=== PATIENT | female | born 1965 | race Caucasian/White ===

== ENCOUNTER 2020-07-16 12:37 | Outpatient (CLI) | payer OTHER, SELFPAY ==
--- NOTE | 2020-07-16 16:58 | WPDPFTINT ---
PFT Interpretation This is a pulmonary function test with pre and post-bronchodilator spirometry, plethysmography and diffusing capacity. The test was performed and results interpreted in accordance with the 2019 and 2005 ATS/ERS Task Force guidelines respectively using the Gaston/Hilario reference equations. Findings: Spirometry: The contour the inspiratory and expiratory flow tracing are normal. The FVC is 3.07 L, 90% predicted. The FEV1 is 2.29 L, 90% predicted. The FEV1: FVC ratio is 75%. Plethysmography: The total lung capacity is 4.17 L, 78% predicted the functional residual capacity is 1.48, 97% predicted. The residual volume is 1.10 L, 56% predicted. Diffusing capacity: The absolute diffusion capacity is 20.4, 62% predicted. The diffusing capacity corrected for alveolar volume is 5.18, 131% predicted. Impression: There is a mild restrictive ventilatory abnormality with a normal FEV1. The spirometry is normal without evidence of an obstructive abnormality. The absolute diffusing capacity is mildly decreased and normalizes when corrected for alveolar volume. There are no prior studies for comparison
== END 2020-07-16 12:38 | disposition home or self-care (01) ==
LOC: ANHPFT 12:45
PROVIDERS: PCP Family Medicine; Visit Provider Family Medicine
DX: R06.02 Shortness of breath (principal)
CPT/HCPCS: 94375; 94726; 94729

== ENCOUNTER → 2020-09-21 15:49 | Outpatient (CLI) | payer OTHER, SELFPAY ==
--- NOTE | ~2020-09-21 | MM_ITS ---
EXAMINATION: MM screening [facility] BI w gilberto HISTORY: Screening TECHNIQUE: Craniocaudal and mediolateral oblique 3-D tomosynthesis images were obtained and synthetic 2-D images were generated. CAD analysis was submitted and interpreted. COMPARISON: Comparison to multiple prior studies sequentially, with oldest reviewed study dated 11/26. BREAST PARENCHYMAL COMPOSITION: There are scattered areas of fibroglandular density. FINDINGS: There is no evidence of suspicious mass, calcification, or architectural distortion to sugg est malignancy in either breast. There has been no suspicious interval change. IMPRESSION: 1. No mammographic evidence of malignancy. 2. Recommend routine screening mammography in one year. BI-RADS Category 1: Negative Reviewed, dictated and finalized at location A.
== END ==
PROVIDERS: PCP Family Medicine; Visit Provider Obstetrics & Gynecology
DX: Z12.31 Encounter for screening mammogram for malignant neoplasm of breast (principal)
CPT/HCPCS: 77063; 77067

== ENCOUNTER → 2022-11-17 13:48 | Outpatient (CLI) | payer OTHER, SELFPAY ==
--- NOTE | ~2022-11-17 | MM_ITS ---
EXAMINATION: MM screening [facility] w gilberto HISTORY: Screening mammogram TECHNIQUE: Craniocaudal and mediolateral oblique 3-D tomosynthesis images were obtained and synthetic 2-D images were generated. CAD analysis was submitted and interpreted. COMPARISON: September 21, 2020, July 20, 2017, February 11, 2015 bilateral screening mamm[facility] BREAST PARENCHYMAL COMPOSITION: There are scattered areas of fibroglandular density. FINDINGS: There is no evidence of suspicious mass, calcification, or architectural distortion to sugg est malignancy in either breast. There has been no suspicious interval change. IMPRESSION: 1. No mammographic evidence of malignancy. 2. Recommend routine screening mammography in one year. BI-RADS Category 1: Negative Reviewed, dictated and finalized at location A.
== END ==
PROVIDERS: PCP Family Medicine; Visit Provider Obstetrics & Gynecology
DX: Z12.31 Encounter for screening mammogram for malignant neoplasm of breast (principal)
CPT/HCPCS: 77063; 77067

== ENCOUNTER 2023-12-28 10:33 | Outpatient (CLI) | payer OTHER, SELFPAY ==
--- NOTE | ~2023-12-28 | MM_ITS ---
EXAMINATION: MM screening [facility] w gilberto HISTORY: Screening TECHNIQUE: Craniocaudal and mediolateral oblique 3-D tomosynthesis images were obtained and synthetic 2-D images were generated. CAD analysis was submitted and interpreted. COMPARISON: Comparison to multiple prior studies sequentially, with oldest reviewed study dated 02/11. BREAST PARENCHYMAL COMPOSITION: Not dense: There are scattered areas of fibroglandular density. FINDINGS: There is no evidence of suspicious mass, calcification, or architectural distortion to sugg est malignancy in either breast. There has been no suspicious interval change. IMPRESSION: 1. No mammographic evidence of malignancy. 2. Recommend routine screening mammography in one year. BI-RADS Category 1: Negative Reviewed, dictated and finalized at location B.
== END 2023-12-28 10:34 ==
LOC: MICIMG 10:34
PROVIDERS: PCP Family Medicine; Visit Provider Obstetrics & Gynecology
DX: Z12.31 Encounter for screening mammogram for malignant neoplasm of breast (principal)
CPT/HCPCS: 77063; 77067

== ENCOUNTER 2024-04-09 10:20 | Outpatient (CLI) | payer OTHER, SELFPAY ==
--- NOTE | ~2024-04-09 | XR_ITS ---
EXAMINATION: XR lumbar spine min 4V DATE: 04/09/2024 11:03 INDICATION: Low back pain. Left leg pain. TECHNIQUE: 5 views of lumbar spine were obtained. COMPARISON: Lumbar spine MRI 04/09/24 FINDINGS: There is 4 degrees levocurvature of lumbar spine. Vertebral body heights are normal. There is mildly decreased disc height at L3-L4. There are endplate osteophytes at multiple levels. There is multilevel facet joint osteoarthritis, severe in lower lumbar spine. Surgical clips in the right upp er quadrant are likely from cholecystectomy. IMPRESSION: 1. Mild lumbar spondylosis. Reviewed, dictated and finalized at location A. NNA RIGGER IMPRESSION: 1. Mild lumbar spondylosis.
--- NOTE | ~2024-04-09 | MR_ITS ---
MRI of the lumbar spine Clinical History: Back pain, radiculopathy Technique: Axial T2-weighted images, and sagittal T1-weighted, T2-weighted, and and T2 fat-sat images were acquired. Findings: There is no fracture or subluxation of the lumbar spine. Vertebral bodies maintain normal h eight and line. 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 No suspicious b one marrow signal reality seen. At L1-L2, there is no disc bulge or herniation. No spinal canal stenosis or neural foraminal narrowin g. At L2-L3, there is no disc bulge or herniation. There is mild facet joint hypertrophy. No spinal indira l stenosis or neural foraminal narrowing. L3-L4, there is minimal disc bulge with moderate facet arthropathy. No spinal canal stenosis or neura l foraminal narrowing. At L4-L5, there is minimal disc bulge with moderate facet arthropathy. No central canal stenosis or n eural foraminal narrowing. At L5-S1, there is minimal disc bulge with moderate facet arthropathy. No central canal stenosis or n eural foraminal narrowing. Paravertebral soft tissues are unremarkable. Impression: Minimal degenerative spondylosis, as above. Reviewed, dictated and finalized at location . NESS DATABASE ANALYST Impression: Minimal degenerative spondylosis, as above.
== END 2024-04-09 10:21 | disposition home or self-care (01) ==
LOC: GOSHIMG 10:21
PROVIDERS: PCP Family Medicine; Visit Provider Family Medicine
DX: M47.896 Other spondylosis, lumbar region (principal)
CPT/HCPCS: 72110; 72148

== ENCOUNTER 2024-07-10 08:01 | Outpatient (CLI) | payer OTHER, SELFPAY ==
--- NOTE | ~2024-07-10 | NM_ITS ---
EXAMINATION: NM aide stress w perfusion DATE: 07/10/2024 10:13 INDICATION: Chest pain TECHNIQUE: Rest images were obtained following intravenous administration of 11.6 mCi Tc99m tetrofosm in (Myoview). The patient was infused intravenously with Lexiscan (Regadenoson). Then, 34 mCi Tc99m t etrofosmin (Myoview) was administered intravenously, and stress images were obtained in the supine po sition with repeat post stress images also obtained in the prone position. Data was reconstructed int o short axis and horizontal and vertical long axis SPECT images. Gated SPECT images were also obtaine d. COMPARISON: None. FINDINGS: There is diaphragmatic attenuation artifact along the inferior wall on the rest and stress images obtained in the supine position which normalizes on the post stress imaging obtained in the pr one position. No perfusion defects on the prone post stress imaging to suggest ischemia or infarct. There is normal left ventricular chamber size, wall motion and ejection fraction. Left ventricular e jection fraction measures >70%. IMPRESSION: 1. Normal myocardial perfusion during stress. 2. Left ventricular ejection fraction measuring >70%. Reviewed, dictated and finalized at location A. TECH
--- OUTSIDE RECORDS SUMMARY | 2024-07-10 08:04 | XMS_ITS | Data Portability ---
Author Organization [facility] [place], Medical Address [address] [place] [address] Care Team Providers Care Insole And Outsole Preparer Name Role Phone ARMANIELIZABETH ROSS Primary Care Provider CALLI GREENBERG Internal Medicine [phone] Assessment Encounter Date Assessment Date Assessment LastModified by Organization Details LastModified Time 04/20/2021 04/20/2021 Sheba is a 55 year who is doing a phone consult: 1. essential HTN and morbid obesity. She has a pcp. I am working with her as a functional doctor today, we talked about ways she can avoid oils in salad dressings. she likes ranch and kittitian. I have shared with her a vegan recipe and asked her to try soft silken tofu instead of cashews. we also talked about the mental aspect of eating. smoothie for breakfast and a soup or salad for lunch should be eaten with gratitude rather than as a punishment. For the holiday alliance party at work, i suggested that she make a huge salad platter and take it to work to share and eat from it. see you in person in vitaliy [place] Not available 04/20/2021 12:23:34 06/15/2021 06/15/2021 Sheba is a 55 year old lady who is following up:: 1. she wants to reset the clock to help her with her weight. she is slowly but surely loosing weight. she started at 345 pounds and now is at 315 pounds. she is doing this by engaging in one healthy meal per day. now she is ready to do more no gluten no soda no fried foods no fast foods eggs just once a week no red meat, only 3 oz of poultry per 2 meals per day 2-4 servings of fresh veggies per day I will have her add at least3 quarts of sparkling or flavored water to her daily routine. 2. GERD- i will call in pepPlayedd and also have her use dgl or rolaids or both I have explained to her that these are band aids and what she really needs is weight reduction and further down the road a look at gut health ,perhaps- triad and sibo? 3. primary hypercholester olemia- continue diet and walking 3-4 times per week. she is moving to a telehealth membership so our next visit post labs will be a telehealth on august 17 Not available 06/15/2021 13:37:44 08/10/2021 08/10/2021 Sheba is a 55 year old following up via telehealth: she is very apologetic because she has not been able to follow her diet as it tastes so bad. she does not know how to cook and what substitutes to use. the whole office visit was spent discussing with her not to give up, to stay persistent and learn a few basics about simple cooking i went thro some spices. I also asked her to consider some simple cooking classes that she could do online for beginners. i will follow up in 2 hours. she will continue to walk. she has noted that when she looses even 5 pounds of weight eg from recent episode of diarrhea, she had less knee pain. this fills her with hope. Not available 08/12/2021 16:09:10 11/09/2021 11/09/2021 Sheba is a a 55 year old lady who is following up via telehealth she has hardly made any progress. she gives herself a 3/10 for progress and it is only because she has learned a few tricks- giving up all soda, cutting down on meat, adding veggies and fruits I think it is time for her to find a health fitness coach either at [place] or in the community. she wants to do her own search. follow up in 2 months. Not available 11/09/2021 14:11:18 12/14/2021 12/14/2021 Sheba is a 56 year old lady who let me know that today is her last visit with me via telehealth. she let me know that i have given her so many tools, and the only thing that she totally implemented is to get off sodas and fast foods. she has not gained more weight but has not lost weight. She is open to seeing a Health fitness coach but cannot afford to also pay for [place] membership. I have given her a name of a functional medicine certified health fitness coach. Not available 12/14/2021 12:07:25 Plan of Treatment Reminders Order Date Submit Date Provider Last Modified By Organization Details Last Modified Time Details Appointments None recorded. Lab gliadin peptide iga Ab, serum 2021 [facility], [address] [place], [address], 02:20:35 lipid panel, serum 2021 [facility], [address] [place], [address], 12:19:23 T3, free, serum or plasma 2021 [facility], [address] [place], [address], 02:20:35 TSH + free T4, serum 2021 [facility], [address] [place], [address], 02:20:32 homocystein e, serum or plasma 2021 [facility], [address] [place], [address], 02:20:33 HbA1c (hemoglobin A1c), blood 2021 [facility], [address] [place], [address], 02:20:34 uric acid, serum or plasma 2021 [facility], [address] [place], [address], 02:20:35 insulin, serum 2021 [facility], [address] [facility], [place], [address], 02:20:36 CMP, serum or plasma 2021 [facility], [address] [place], [address], 02:20:33 vitamin D, 25-hydroxy, total, serum 2021 [facility], [address] [place], [address], 02:20:34 Referral None recorded. Procedures None recorded. Surgeries None recorded. Imaging None recorded. Medication Orders famotidine 20 mg tablet [address] [facility], [address] [place], [address], 13:33:05 Patient TargetsNo targets recorded. Patient Instructions Encounter Date Encounter Id Patient Instructions Last Modified By Organization Details Last Modified Time 04/20/2021 [id number] Sheba here is a good recipe for a vegan version of kittitian dressing: Made from raw cashews, vegan kittitian dressing recipe tastes creamy and delicious without any added sugars or processed fats. In fact, this dressing can be transformed into Vegan Thousand Island Dressing by adding chopped pickles. In order to accommodate all diets, I also provide a nut-free recipe for people who avoid nuts, so don't run away. WHAT INGREDIENTS ARE NEEDED FOR VEGAN MONGOLIAN DRESSING? So, what's in this fabulous dressing? 1/2 cup raw cashews (soaked overnight but not necessary) 1/2 cup organic ketchup 1/4 cup apple cider vinegar 2 Tablespoons agave (you can sub maple syrup)- i would like you to use 2 tbs LAKANTO ( get on amazon) 1 teaspoon salt 1 teaspoon pepper 1/2 cup water NUT-FREE VEGAN MONGOLIAN DRESSING VARIATION VARIATION 1 AND 2: (IF YOU ARE ALLERGIC TO NUTS) Substitute 1/2 cup Vegenasie for nuts and reduce water to 1/4 cup or Substitute 1/2 cup silken tofu -soft- for nuts and use 1/2 cup water ( try the brand- HERBERTH NU TOFU) And, all you need is a high-quality high-speed wiper blender! I love my Nutri-bullet; not only is it inexpensive, but it also works better than the Vitamix I returned. Kiswahili dressing, not only is great on salads, but it also is a great sandwich spread or vegetable dip. Similarly, vegan thousand island dressing is fabulous on a Vegan Tempeh Jarred, or as a drizzle on steamed vegetables. Not available 04/20/2021 12:17:13 06/15/2021 [id number] 1. labs to be done fasting in mid july. DO not pay more than $70 for vitamin D. if needed go to [facility] and order a vitamin D. the results go to your mail box and you can upload a copy to the [employer] portal. 2. Great plan on your diet. 3. labs ordered to be done after jul 19- okay to use any date till august 17 for follow up on august 17- tele. 4. for heart burn- try pepcid, rolaids or DGL as needed Not available 06/15/2021 12:17:55 Lab requisition given to Sheba to have done at a [facility] location near her. Not available 06/15/2021 12:41:17 08/10/2021 [id number] try SILK ultra original with 5 gm sugar per cup and taste for milk flavor. This one is creamy. try Penzey's spices as recommended. christiano roderick, vietnamese, tuscan sunset should be your basic. try the trial packets- justice and mural of flavor or any that you like. DO NOT GIVE UP. I hope that you have found at least 4 staple recipes that you like with these. also try using some vegennaise Not available 08/10/2021 13:25:01 LVM w Sheba letting her know her instructions have been posted to her portal and to call and ask for Luma if she has any questions. -[facility] Not available 08/10/2021 16:08:27 11/09/2021 [id number] 1. I have shared with you tips of using your instant pot. try mixing a bag of frozen veggies, half cup of soaked legumes, tomato sauce, and any herb seasoning that you like eg tristanian, croatian or vietnamese add water and pressure cook per the jensen's pressure needs garnish with lemon, salt and any hot sauce or even avocados, and shredded 2 color cabbage for a tristanian soup. 2. lets meet back in 2 months. however, it may be useful for you to get a health fitness coach in the interim. [employer] has a health fitness coach or you can use one from the community who has trained in functional nutrition and veganism. eg [employer]. 3.for fatigue, add [facility] Active B one daily, take at least 5 days per week with food, breakfast or lunch. Not available 11/09/2021 14:26:47 went over pt instructions, and will ask VR if there is another B Vit she recommends that Sheba can order elsewhere. -[facility] Not available 11/09/2021 16:12:14 12/14/2021 [id number] Sheba, I am s o sorry to see you leave [facility] and I am even more sorry that I could not help facilitate more lifestyle changes in you. I want you to know that YOU DO HAVE THE POWER to control your body. It just takes discipline and will power. Try to work one one one with a Functional Medicine trained Health fitness coach . I think that you may find that oil extractor holding may work and you could see results in a 3 months! I know of one called [employer] who does online work only; Email her if you are truly interested. Not available 12/14/2021 12:10:53 Reason for Referral None Reported. Results Created Date Observation Date Name Description Value Unit Range Abnormal Flag Note LastModifiedBy Organization Detail LastModifiedTime 03/02/20 22 03/08/2022 TSH+F REE T4 TSH 2.86 mIU/L 0.40-4 .50 normal Not Available [facility] [address] [address], [place], [address], 03/08/2022 02:20:32 03/02/20 22 03/08/2022 TSH+F REE T4 T4, free 1.2 NG/dL 0.8-1. 8 normal Not Available [facility] [address], [address], 03/08/2022 02:20:32 03/02/20 22 03/08/2022 HOMOC YSTEI NE homocysteine 14.2 umol/ L <10.4 high Homoc ystei ne is incre ased by funct ional defic iency of folat e or vitam in B12. Testi ng for methy lmalo amalia acid diffe renti ates betwe en these defic ienci es. Other cause s of incre ased homoc ystei ne inclu de renal failu re, folat e antag onist s such as metho trexa te and pheny toin, and expos ure to nitro us oxide . Yaya romero J, et al., [facility] Inter n Med. 1999; 131(5 ):331 -9. Not Available [address], [address], 03/08/2022 02:20:33 03/02/20 22 03/08/2022 COMPR EHENS CHENCHO METAB OLIC PANEL glucose 107 mg/dL 65-99 high Fasti ng refer ence inter james For someo ne witho ut known diabe grey, a gluco se value betwe en 100 and 125 mg/dL is consi stent with predi abete s and shoul d be confi rmed with a follo w-up test. Not Available [address], [address], 03/08/2022 02:20:33 03/02/20 22 03/08/2022 COMPR EHENS CHENCHO METAB OLIC PANEL urea nitrogen (BUN) 14 mg/dL 7-25 normal Not Available [address] [place], [address], 03/08/2022 02:20:33 03/02/20 22 03/08/2022 COMPR EHENS CHENCHO METAB OLIC PANEL creatinine 0.95 mg/dL 0.50-1 .03 normal Not Available [address], [address], 03/08/2022 02:20:33 03/02/20 22 03/08/2022 COMPR EHENS CHENCHO METAB OLIC PANEL eGFR 69 mL/mi n/1.7 3m2 > or = 60 normal The eGFR is based on the CKD-E PI 2020 equat ion. To calcu late the new eGFR from a previ ous Creat inine or Cysta tin C resul t, go to https ://monica dunham.kevin monsivais/nuria abreu s/ kdoqi /gfr% 5Fcal culat or Not Available [address], [address], 03/08/2022 02:20:33 03/02/20 22 03/08/2022 COMPR EHENS CHENCHO METAB OLIC PANEL BUN/creatini ne ratio NOT APPLIC ABLE (calc ) 6-22 Not Available [address], [address], 03/08/2022 02:20:33 03/02/20 22 03/08/2022 COMPR EHENS CHENCHO METAB OLIC PANEL sodium 137 mmol/ L 135-14 6 normal Not Available [address], [address], 03/08/2022 02:20:33 03/02/20 22 03/08/2022 COMPR EHENS CHENCHO METAB OLIC PANEL potassium 4.1 mmol/ L 3.5-5. 3 normal Not Available [address], [address], 03/08/2022 02:20:33 03/02/20 22 03/08/2022 COMPR EHENS CHENCHO METAB OLIC PANEL chloride 100 mmol/ L 98-110 normal Not Available [address], [address], 03/08/2022 02:20:33 03/02/20 22 03/08/2022 COMPR EHENS CHENCHO METAB OLIC PANEL carbon dioxide 28 mmol/ L 20-32 normal Not Available [address], [address], 03/08/2022 02:20:33 03/02/20 22 03/08/2022 COMPR EHENS CHENCHO METAB OLIC PANEL calcium 8.8 mg/dL 8.6-10 .4 normal Not Available [address], [address], 03/08/2022 02:20:33 03/02/20 22 03/08/2022 COMPR EHENS CHENCHO METAB OLIC PANEL protein, total 7.3 g/dL 6.1-8. 1 normal Not Available [address], [address], 03/08/2022 02:20:33 03/02/20 22 03/08/2022 COMPR EHENS CHENCHO METAB OLIC PANEL albumin 3.8 g/dL 3.6-5. 1 normal Not Available [address], [address], 03/08/2022 02:20:33 03/02/20 22 03/08/2022 COMPR EHENS CHENCHO METAB OLIC PANEL globulin 3.5 g/dL_ (calc ) 1.9-3. 7 normal Not Available [address], [address], 03/08/2022 02:20:33 03/02/20 22 03/08/2022 COMPR EHENS CHENCHO METAB OLIC PANEL albumin/glob ulin ratio 1.1 (calc ) 1.0-2. 5 normal Not Available [address], [address], 03/08/2022 02:20:33 03/02/20 22 03/08/2022 COMPR EHENS CHENCHO METAB OLIC PANEL bilirubin, total 0.7 mg/dL 0.2-1. 2 normal Not Available [address], [address], 03/08/2022 02:20:33 03/02/20 22 03/08/2022 COMPR EHENS CHENCHO METAB OLIC PANEL alkaline phosphatase 90 U/L 37-153 normal Not Available [facility] [employer] [address], [address], 03/08/2022 02:20:33 03/02/20 22 03/08/2022 COMPR EHENS CHENCHO METAB OLIC PANEL AST 15 U/L 10-35 normal Not Available [address], [address], 03/08/2022 02:20:33 03/02/20 22 03/08/2022 COMPR EHENS CHENCHO METAB OLIC PANEL ALT 15 U/L 6-29 normal Not Available [address], [address], 03/08/2022 02:20:33 03/02/20 22 03/08/2022 HEMOG LOBIN A1C hemoglobin A1C 5.6 %_of_ total _HGB <5.7 normal For the purpo se of screjane andres for the prese nce of diabe grey: <5.7% Consi stent with the absen ce of diabe grey 5.7-6 .4% Consi stent with incre ased risk for diabe grey (pred iabet es) > or =6.5% Consi stent with diabe grey This assay resul t is consi stent with a decre ased risk of diabe grey. Curre ntly, no conse nsus exist s regar ding use of hemog lobin A1c for diagn osis of diabe grey in child gt. Accor ding to Ameri can Diabe grey Assoc iatio n (ADA) guide lines , hemog lobin A1c <7.0% repre sents optim al contr ol in non-p regna nt diabe tic patie nts. Diffe rent ri cs may apply to speci fic patie nt popul ation s. Stand ards of Medic al Care in Diabe grey(A DA). Not Available [facility] [place] [address] [place], [address], 03/08/2022 02:20:34 03/02/20 22 03/08/2022 VITAM IN D,25- OH,TO MUNA,I A vitamin D,25-oh,tota l,ia 37 NG/mL 30-100 normal Vitam in D Statu s 25-OH Vitam in D: Defic iency : <20 ng/mL Insuf ficie ncy: 20 - 29 ng/mL Optim al: > or = 30 ng/mL For 25-OH Vitam in D testi ng on patie nts on D2-light pplem entat ion and patie nts for whom quant itati on of D2 and D3 fract ions is requi red, the [facility] e[facility](TM ) 25-OH VIT D, (D2,D 3), LC/MS /MS is recom leena d: order code 54083 (felicia ents >2yrs ). See Note 1 Note 1 For addit ional infor yanick hedrick e refer to http: //deep Boyle stDia gnost ics.c om/fa q/FAQ 199 (This link is being provi ded for infor selena villafana/ educa minerva pinto purpo ses only. ) Not Available [facility] [address] [address] [place], [address], 03/08/2022 02:20:34 03/02/20 22 03/08/2022 URIC ACID uric acid 7.5 mg/dL 2.5-7. 0 high Thera peuti c targe t for gout patie nts: <6.0 mg/dL Not Available [facility], [address], 03/08/2022 02:20:34 03/02/20 22 03/08/2022 T3, FREE T3, free 3.2 pg/mL 2.3-4. 2 normal Not Available [address], [address], 03/08/2022 02:20:35 03/02/20 22 03/08/2022 GLIAD IN (DEAM IDATE D) AB (IGA) gliadin (deamidated) Ab (IgA) 2.7 U/mL normal Value Inter preta tion ----- ----- ----- ---- <15.0 Antib miriam not detec marybeth > or = 15.0 Antib miriam detec marybeth Not Available [facility] [address], [address], 03/08/2022 02:20:35 03/02/20 22 03/08/2022 AWN TEST REFUS AL RAM1 Be advis ed that your patie nt has indic ated on the advan ce writt en notic e their decis ion not to recei ve the follo wing labor atory tests . As a resul t, the tests will not be perfo rmed. Not Available [facility] [address], [address], 03/08/2022 02:20:36 03/02/20 22 03/08/2022 AWN TEST REFUS AL awn test refused [id number] Not Available [facility] [address], [address], 03/08/2022 02:20:36 03/02/20 22 03/08/2022 INSUL IN insulin 28.0 uIU/m L high Refer ence Range < or = 19.6 Risk: Optim al < or = 19.6 Moder ate NA High >19.6 Adult cardi ovasc ular event risk categ ory cut point s (opti mal, moder ate, high) are based on [facility] popul ation data from 05/23 11. This insul in assay shows stron g cross -reac tivit y for some insul in analo gs (lisp ro, aspar t, and glarg ine) and much lower cross -reac tivit y with other s (dete farhan, gluli sine) . Your reque st to have a dupli shorty copy faxed has been mary saenz ed. Queue d to: [phone] Not Available [facility] [address] [place], [address], 03/08/2022 02:20:36 Result Notes None recorded. Problems Name Problem SNOMED Code Status Onset Date Resolution Date Notes Provider Name and Address Organization Details Recorded Time Metabolic syndrome X 371634471 Active 2020 Calli Brigitte null, [place] [facility] 10:47:55 Essential hypertension 25642066 Active 2020 Calli Brig[place] [facility] 10:47:57 Hyperuricemia 46424409 Active 2020 Calli Brig[place] [facility] 10:49:29 Body mass index 40+ - severely obese 725024841 Active 2020 Calli [place] [facility] 10:49:31 Mixed hyperlipidemia 776470551 Active 2020 Calli Brig[place] [facility] 10:49:33 Gastroesophage al reflux disease 191527234 Active 2020 Calli [place] [facility] 11:44:24 Morbid obesity 970017038 Active 2020 Calli Brig[place] [facility] 11:44:26 Atrophic vaginitis 88397634 Active 2020 Calli Brigitte [place] [facility] 07/07/202 1 11:44:28 Working through the pain of grief 718584604 Active 2020 [facility] 14:59:53 Hip pain 24432512 Active 2020 Calli Greenberg [facility] [employer] [facility] 17:51:40 Mixed urinary incontinence 488608788 Active 2020 [facility] 17:51:41 Obstructive sleep apnea syndrome 66833191 Active 2021 [facility] 2 14:11:18 Problem Notes None recorded. Procedures Surgical History Date Name Laterality Status Provider Name and Address Organization Details Recorded Time section completed Viktoria Duran [facility] 06/07/2020 16:29:50 Other completed Viktoria Barrosmally [facility] 06/07/2020 16:30:23 Imaging Results None recorded. Procedure Notes None recorded. Medical Equipment None Reported. Allergies No known drug allergies Medications Name Sig Start Date Stop Date Status Note LastModified by Organization Details LastModified Time fluconazo le 150 mg tablet TAKE ONE TABLET BY MOUTH EVERY 3 DAYS 12/08 completed Not Available Not Available Not Available metoprolo l succinate ER 200 mg tablet,ex tended release 24 hr Take 0.5 mg every day by oral route for 90 days. 09/22 completed Not Available Not Available Not Available metoprolo l succinate ER 100 mg tablet,ex tended release 24 hr one tablet daily active Not Available Not Available No t Available chlorthal idone 25 mg tablet Take 1 tablet every day by oral route for 90 days. active Not Available Not Available No t Available famotidin e 20 mg tablet TAKE 1 TABLET BY MOUTH TWICE DAILY active Not Available Not Available No t Available triamcino lone acetonide 0.1 % topical ointment APPLY TO THE AFFECTED AREA(S) THREE TIMES DAILYAS NEEDED active Only PRN, about once or twice monthly Not Available Not Available Not Available hydrocort isone 2.5 % topical cream APPLY TO CHEEKS/E YEBROWS/ UNDER BREASTS/ ABDOMEN EVERY DAY AT BEDTIME NEEDED. active Not Available Not Available No t Available allopurin ol 300 mg tablet has not started- 08/04/19 21 09/22 completed Not Available Not Available Not Available mupirocin 2 % topical ointment as needed active Not Available Not Available No t Available estradiol 0.01% (0.1 mg/gram) vaginal cream INSERT 1 APPLICAT ORFUL VAGINALL Y IN THE MORNING 01/12 completed Not Available Not Available Not Available ketoconaz ole 2 % topical cream APPLY TO CHEEKS/E YEBROWS/ UNDER BREASTS/ ABDOMEN EVERY DAY IN THE MORNING NEEDED. 11/09 completed Not Available Not Available Not Available irbesarta n 300 mg tablet one tablet daily active Not Available Not Available No t Available solifenac in 5 mg tablet Take 1 tablet every day by oral route for 90 days. active Not Available Not Available No t Available metoprolo l suc 100 mg-hydroc hlorothia zide 12.5 mg tablet,ex t.rel 24 hr Take 1 tablet every day by oral route. 06/15 completed Not Available Not Available Not Available Vitals Date Recorded Body height Body mass index (BMI) Body weight Provider Name and Address Organization Details Last Updated DateTime 04/20/2021 165.74 cm 55.3 kg/m2 832821.44 g Anna Alberto [facility] 04/20/2021 11:35:18 Date Recorded Body height Body mass index (BMI) Body weight Body temperature Heart rate Oxygen saturation Oxygen saturation in Arterial blood by Pulse oximetry Systolic blood pressure Diastolic blood pressure Provider Name and Address Organization Details Last Updated DateTime 2 163.83 cm 55.9 kg/m2 952638. 07 g 97.8 [degF] 76 /min 95 % 95 % 130 mm[Hg] 80 mm[Hg] Dianna Koroma [facility] 2 11:17:56 Date Recorded Body height Body mass index (BMI) Body weight Heart rate Systolic blood pressure Diastolic blood pressure Provider Name and Address Organization Details Last Updated DateTime 2 163.83 cm 55.1 kg/m2 550521. 11 g 80 /min 122 mm[Hg] 75 mm[Hg] Anna Alberto [facility] 2 12:04:04 Date Recorded Body height Body mass index (BMI) Body weight Provider Name and Address Organization Details Last Updated DateTime 11/09/2021 163.83 cm 55.4 kg/m2 715051.3 g [facility]na [facility] 11/09/2021 12:46:44 Date Recorded Body height Body mass index (BMI) Body weight Provider Name and Address Organization Details Last Updated DateTime 12/14/2021 163.83 cm 55.4 kg/m2 227460.3 g Dianna [facility] 12/14/2021 11:24:11 Social History None recorded. Functional Status None recorded. Mental Status None recorded. Family History Relationship Description Onset Age of this Age Resolved Age Notes LastModified by Organization Details LastModified Time Mother Myocardial infarction [email or web address] Not available 06/07 16:19:45 Father Dementia 84 Not available 06/07/2020 16:20:00 Medical History Condition Response Coronary Artery Disease N Other N Gout N High Blood Pressure Y Kidney Stones N Hyperthyroidism N MRSA N INJURIES N Chronic Sinusitis N Gerd/Reflux N Braces N Congenital Heart Disease N Depression N Pneumonia N BLOOD/INFLAMMATORY/IMMUNE N Complex Regional Pain Syndrome N Headache/Migraine N Sinusitis N RESPIRATORY N Gall stones N Bulimia N Obesity Y Arthritis N Polycystic Ovarian Syndrome N Infertility N Congenital Disorder N Stroke N Crohn's Disease N Neck Injury N HIV/AIDS N CARDIOVASCULAR N Skin Cancer N Mood disorder N Fibromyalgia N Irritable Bowel Syndrome N Kidney Disease N Concussion/Traumatic Brain Injury N Inflammatory bowel disease N Chronic Fatigue Syndrome N Anxiety N Hospitalizations N Irregular HR/Arrhythmia N Heart Attack/KS N Herpes N GASTROINTESTINAL N Acne N PTSD N Celiac Disease N Constipation N Bleeding Disorder N Hepatitis/Liver Disease N Broken bone N Cerebral Palsy N Tuberculosis N METABOLIC/ENDOCRINE N Asthma N Dental Visits 2x/year N Silver/Mercury Amalgum fillings N Chronic Ear Infections N Bipolar disorder N Oral Steroids as Adult N MENTAL HEALTH N URINARY/REPRODUCTIVE N Anorexia N Hypothyroidism N Developmental delay N Pacemaker N Panic attacks N DERMATOLOGIC N Gastic or peptic ulcers N Food intolerance N Yeast infections N Prostate problem N Mononucleosis N Chronic pain N Hypoglycemia N Severe infections N ORAL HEALTH N Metabolic syndrome N Back Injury N High Cholesterol N Antibiotic Use as Teen N CANCER N Type 1 Diabetes N Autism/Autism Spectrum Disorder (ASD) N Autoimmune Disease N Allergies/Hayfever N Recurrent Fractures N Head Injury N Osteoarthritis N NEUROLOGIC N Rheumatic fever N Parkinson's Disease N Oral Steroids as Teen N ADD/ADHD N Anemia N Multiple Sclerosis N Back Pain N Type 2 Diabetes N Bronchitis/Emphysema N Dentures N Retainer N Cardiomyopathy N Seizures/Epilepsy N Heart Murmur N Congestive Heart Failure (CHF) N Valvular Heart Disease N Cancer and treatments N Eczema N MUSCULOSKELETAL/PAIN N Dementia N Urinary tract infections N Ulcerative colitis N Lupus N Learning Disorder/Difficulty N Connective Tissue Disorder N Blood Clotting Disorder N Antibiotic Use as Adult N Psoriasis N Sleep Apnea N Oral Steroids as Infant/Child N Antibiotic Use in Infancy/Childhood N Osteoporosis N Gynecological HistoryNo gynecological history recorded. Obstetrics History GPAL:G 0 P 0 0 0 0 Immunizations Vaccine Type Date Status Note Provider Nam e and Address Organization Details Recorded Time COVID-19, mRNA, LNP-S, PF, 30 mcg/0.3 mL dose 04/06/2021 completed Dianna Koroma [employer] [facility] 06/15/2021 11:20:49 COVID-19, mRNA, LNP-S, PF, 30 mcg/0.3 mL dose 09/04/2020 completed Dianna Koroma [employer] [facility] 06/15/2021 11:20:56 COVID-19, mRNA, LNP-S, PF, 30 mcg/0.3 mL dose 08/04/2020 completed Dianna Koroma null, [facility] 06/15/2021 11:21:04 COVID-19, mRNA, LNP-S, PF, 30 mcg/0.3 mL dose 11/17/2021 completed Dianna Koroma [employer] [facility] 12/14/2021 11:26:41 Past Encounters Encounter ID Performer Location Encounter Start Date Encounter Closed Date Diagnosis/Indication Diagnosis SNOMED-CT Code Diagnosis ICD10 Code Diagnosis Note [id number] [address] 4 04/07/2020 08:29:24 04/08/2020 10:57:[id number] [address] 4 06/07/2020 16:00:01 06/08/2020 12:15:14 Morbid obesity 422120835 E66.01 Essential hypertension 19478973 I10 Obstructiv e sleep apnea syndrome 89327525 G47.33 Gastroesop hageal reflux disease 383891107 K21.9 Irritable bowel syndrome 70386211 K58.[id number] [address] 4 08/03/2020 11:31:29 08/03/2020 16:51:42 Metabolic syndrome X 356251863 E88.81 Essential hypertension 07268081 I10 on metoprolol 50, irbesartan 300 and chlorthali done25 Mixed hyperlipidemia 267 156871 E78.2 Body mass index 40+ - severely obese 569777742 Z68.43 Hyperuricemia 38336305 E 79.0 uric acid 7.4 hv, on chlorthali done 25 mg [id number] [place] [id number] 4 09/22/2020 10:18:19 09/22/2020 15:28:35 Essential hypertension 78140205 I10 on metoprolol 50, irbesartan 300 and chlorthali done25 Body mass index 40+ - severely obese 121276767 Z68.43 Metabolic syndrome X 237 129978 E88.81 Mixed hyperlipidemia 267 931323 E78.[id number] [address] 4 10/27/2020 10:16:00 10/27/2020 16:32:22 Essential hypertension 23456636 I10 on metoprolol 50, irbesartan 300 and chlorthali done25 Metabolic syndrome X 237 215999 E88.81 Stress and adjustment reaction 167361071 F43.9 Gastroesop hageal reflux disease 326916709 K21.9 [id number] [place] [id number] 4 12/08/2020 10:21:19 12/08/2020 15:03:07 Atrophic vaginitis 48357288 N95.2 Morbid obesity 597749484 E66.01 Essential hypertension 52298244 I10 on metoprolol 50, irbesartan 300 and chlorthali done25 Gastroesop hageal reflux disease 431980542 K21.[id number] [address] 4 01/12/2021 10:27:00 01/12/2021 16:50:13 Morbid obesity 832072784 E66.01 Working th rough the pain of grief 105382305 F43.[id number] [address] 4 02/16/2021 10:19:45 02/16/2021 16:18:47 Mixed urinary incontinence 144033693 N39.46 Hip pain 01820128 M25.55 9 [id number] [place] [id number] 4 03/22/2021 11:06:20 03/23/2021 10:59:20 Morbid obesity 993495619 E66.01 Mixed hyperlipidemia 267 777989 E78.2 Essential hypertension 81238426 I10 on metoprolol 50, irbesartan 300 and chlorthali done25 [id number] [address] [address] 4 04/20/2021 11:33:55 04/20/2021 15:47:14 Essential hypertension 04481918 I10 on metoprolol 50, irbesartan 300 and chlorthali done25 Mixed hyperlipidemia 267 699976 E78.2 Morbid obesity 186623936 E66.[id number] [address] 4 06/15/2021 11:06:08 06/15/2021 13:37:55 Morbid obesity 977188230 E66.01 Primary hypercholesterolemia 833170103 E78.00 Adult heal th examination 954173144 Z00.00 Gluten sensitivity 31467 1003 K90.41 Gastroesop hageal reflux disease 020394207 K21.[id number] [address] 4 08/10/2021 12:03:26 08/11/2021 10:30:39 Morbid obesity 066259539 E66.[id number] [address] 4 11/09/2021 12:43:25 11/09/2021 17:18:09 Morbid obesity 741525626 E66.01 bmi 55 Essential hypertension 09393137 I10 on metoprolol 50, irbesartan 300 and chlorthali done25 Obstructiv e sleep apnea syndrome 60063062 G47.33 uses cpap- 1.5 years. [id number] [facility] [address] [place] [address] 12/14/2021 11:19:06 12/14/2021 17:19:13 Morbid obesity 999911187 E66.01 bmi 55 Essential hypertension 23425639 I10 on metoprolol 50, irbesartan 300 and chlorthali done25 Health Concerns Section Related Observation LastModified by Organization Detai ls LastModified Time None Recorded Concern Status LastModified by Organization Details LastModified Time None Recorded Advance Directives Directive None Recorded Payers Encounter Date Sequence Insurance Name Policy Number Policy Foster Covered Member ID Foster Member ID Guarantor Name 04/20/2021 1 [employer] [id number] Sheba Ash [id number] OI Sheba Ash 06/15/2021 1 [employer] [id number] Sheba Amezcuags [id number] OI Sheba Ash 08/10/2021 1 [employer] [id number] Sheba Amezcuags [id number] OI Sheba Ash 11/09/2021 1 [employer] [id number] Sheba Amezcuags [id number] OI Sheba Ash 12/14/2021 1 [employer] [id number] Sheba Amezcuags [id number] OI Sheba Ash Notes Date Note Type Note Provider Name and Address Organization Details Recorded Time 04/20/2021 text/html Sheba is a 55 year old lady who is doing a telehealth: 1. Headache and fevers today. she was in the office this week on sunday. she did her rapid test this am and was negative. ( home test)2. smoothie recipe changed to half dose of the greens to make it taste better. she is also eating large salads r soups for lunch and walks daily with her daughter.she likes kittitian and ranch dressings but using vinaigaretters.no change in weightshe does have some sob.she feels better on days she walks than not.however, walking too far, makes her back pain worse. Calli nixon [employer] 04/20/2021 12:23:55 06/15/2021 text/html Sheba is a 55 year old 1. morbid obesity- she has been walking at least 3 dyas per week.during the holidays, she cheated.from Jun , she is getting off all SODA, FAST FOODS, NO FRIED FOODS, EGGS 1 / week, 3 oz poultry, Veggies 2-4 servings and no gluten 2. hip discomfort is pain 3. GERD with chest pain Calli nixon [employer] 06/15/2021 13:37:53 08/10/2021 text/html Sheba is a 55 year old lady who is following up: 1. back and knee pain 2. food poisoning over the weekend from a bbq place's baked beans. she lost weight ~ 5 pounds and her knees felt better. it was amazing Calli nixon [employer] 08/12/2021 16:09:18 11/09/2021 text/html Sheba is a 55 year old lady who is here for the followin. no weight lossshe gives herself a 3/10 for learning a lot moreshe does not always practice what she has learnedshe has an instant pot. 2. high BP. on metoprolol 100 mg er, irbesartan 300 mg and chlorthalidone.she has not checked her bp. no sob, no chest pains. 3. lifestylesleep- fair. uses cpap. will wake up around 3 and not get back to sleep till 5 on some days.diet- no sodas, fiber is low. will tend to eat fried foodsexercise- has not been regular with walkingcommunity around her love foods that is meat and potatoes and fried. she and her will no longer eat at [employer], but the restaurants do serve meat and potatoes and fried foods. ANKUSH Kauffman [employer] 11/09/2021 17:44:53 12/14/2021 text/html Sheba is a 56 year old lady: staying off fast foods and sodano change.cancelling her membership due to prohibitive costs.She let me know that I have given her the tools but she cannot seem to implement them. blood pressure is stable got back to walking 3 times per week with her daughter in the evenings. [facility] 12:11:12 OBGyn Episode No OBEpisode recorded.
--- NOTE | 2024-07-10 08:44 | EST_ITS ---
Patient Info Name: Sheba Ash Age: 58 years : 1965 Gender: Female Ht: 63 in Wt: 250 lbs BSA: 2.31 m2 Exam Date: 07/10/2024 9:21 AM Exam Location: [facility] Patient Status: Outpatient Admit Date: 07/10/2024 Staff Ordering Physician: Chris Palma MD Attending Provider: Sheba Palma MD Exercise Technologist: Aedlaide Sal RDCS Exercise Physician: Andres Green DO Exam Type: CA stress aide w NM Study Info Indications R07.9 - Chest pain, unspecified A regadenoson stress test was performed. Summary 1. 1. Negative lexiscan stress test for ischemic ST changes by ECG criteria. 2. 2. Stable hemodynamics throughout the test. 3. 3. Nuclear scan to follow and will be reported separately. Please correlate with it. 4. 4. Patient informed of the above results. Protocol: Lexiscan Stress ECG Details Stage: REST Duration (min): 1 min : 1 sec HR (bpm): 81 SBP (mmHg): 114 DBP (mmHg): 75 Stage: REST Duration (min): 9 min : 41 sec HR (bpm): 82 SBP (mmHg): 114 DBP (mmHg): 75 Stage: STAGE 1 Duration (min): 0 min : 59 sec HR (bpm): 102 SBP (mmHg): 89 DBP (mmHg): 69 Stage: RECOVERY Duration (min): 1 min : 0 sec HR (bpm): 106 SBP (mmHg): 100 DBP (mmHg): 70 Stage: RECOVERY Duration (min): 2 min : 0 sec HR (bpm): 102 SBP (mmHg): 100 DBP (mmHg): 70 Stage: RECOVERY Duration (min): 3 min : 0 sec HR (bpm): 101 SBP (mmHg): 110 DBP (mmHg): 67 Stage: RECOVERY Duration (min): 3 min : 38 sec HR (bpm): 100 SBP (mmHg): 110 DBP (mmHg): 67 Rest HR: 82 bpm Peak HR: 108 bpm Rest Sys BP: 114 mmHg Peak Sys BP: 110 mmHg Max Pred HR: 160 bpm % Max Pred HR: 68 % Target HR: 136 bpm Max RPP: 11,880 bpm*mmHg Termination Reason: Completed protocol Cardiac Symptoms: Shortness of breath, Headache Total Time: 1 min : 0 sec Rest Carter BP: 75 mmHg Peak Carter BP: 67 mmHg Total Dose: 0.4 mg Resting ECG Sinus rhythm. Stress ECG No ST changes. Arrhythmias None. Report Signatures
== END 2024-07-10 08:02 | disposition home or self-care (01) ==
PROVIDERS: PCP Family Medicine; Visit Provider Family Medicine
DX: I95.1 Orthostatic hypotension (principal); R07.9 Chest pain, unspecified; Z82.49 Family history of ischemic heart disease and other diseases of the circulatory system
CPT/HCPCS: 78452; 93017; A9502; J2785

== ENCOUNTER 2024-12-31 10:39 | Outpatient (CLI) | payer OTHER, SELFPAY ==
--- NOTE | ~2024-12-31 | MM_ITS ---
EXAMINATION: MM screening [facility] w gilberto HISTORY: Screening TECHNIQUE: Craniocaudal and mediolateral oblique 3-D tomosynthesis images were obtained and synthetic 2-D images were generated. CAD analysis was submitted and interpreted. COMPARISON: Comparison to multiple prior studies sequentially, with oldest reviewed study dated 02/11. BREAST PARENCHYMAL COMPOSITION: Not dense: There are scattered areas of fibroglandular density. FINDINGS: There is no evidence of suspicious mass, calcification, or architectural distortion to sugg est malignancy in either breast. There has been no suspicious interval change. IMPRESSION: 1. No mammographic evidence of malignancy. 2. Recommend routine screening mammography in one year. BI-RADS Category 1: Negative Reviewed, dictated and finalized at location B.
== END 2024-12-31 10:40 | disposition home or self-care (01) ==
LOC: MICIMG 10:39
PROVIDERS: PCP Family Medicine; Visit Provider Obstetrics & Gynecology
DX: Z12.31 Encounter for screening mammogram for malignant neoplasm of breast (principal)
CPT/HCPCS: 77063; 77067